=== PATIENT | female | born 1945 | race Native Hawaiian/Other Pacific Islander ===

== ENCOUNTER 2016-09-17 06:20 | Day surgery (SDC) | payer MEDICARE, OTHER ==
[2016-09-11 08:42] VITALS: BMI 27.1
[~2016-09-17 06:20] MED LIST: Ciprofloxacin 0.3% OPTH SOLN OD SCH; Cyclopentolate 1% Opth (2 ml) OD SCH; Flurbiprofen 0.03% Opht SOLN OD SCH; Lactated Ringer's 500 ML IV ONE; Phenylephrine 2.5% Opht Soln OD SCH; Tropicamide 1% Opht SOLUTION OD SCH; acetaZOLAMIDE 500 mg SR Cap PO ONE
[2016-09-17] MEDS ORDERED: Lactated Ringer's 1,000 ML IV ONE (07:00)
[2016-09-17] MEDS: Tetracaine 0.5% Ophth (OR ONLY) ONE ×3 (07:37→08:36)
[2016-09-17] MEDS: Povidone Iodine Ophthalmic 5% Soln ONE ×3 (07:38→08:45)
[2016-09-17] MEDS: Hyaluronidase Human, Recombi 150 U/ML VIAL ONE ×2 (07:40→08:45)
[2016-09-17] MEDS: Lidocaine 2% Inj (20ml) ONE ×3 (07:40→08:45)
[2016-09-17] MEDS: Carbachol 0.01% IO ONE ×2 (07:41→08:50)
[2016-09-17] MEDS: Chondroitin/Hyaluronate Opth Syringe KIT (0.55 ml-0.5 ml) IO ONE ×2 (07:41→08:56)
[2016-09-17] MEDS: Tobramycin/Dexamethasone OPHT OINT ONE ×2 (07:42→08:47)
[2016-09-17] MEDS ORDERED: Midazolam 2 MG/2 ML VIAL ONE (08:11)
[2016-09-17] MEDS ORDERED: acetaZOLAMIDE 500 mg SR Cap PO ONE (09:30)
[2016-09-17 11:01] VITALS: TEMP 96.4; O2SAT 96
[2016-09-17 11:02] VITALS: PULSE 67; RESP 18
[2016-09-17 11:03] VITALS: BP 182/70
--- NOTE | 2016-10-08 20:21 | OP ---
PROCEDURE DATE: 09/17/2016 PREOPERATIVE DIAGNOSIS: Cataract. POSTOPERATIVE DIAGNOSIS: Cataract. PROCEDURE: Phacoemulsification, insertion of posterior chamber implant. SURGEON: Dr. Venkata Sherman COSURGEON: Dr. Dozier TYPE OF ANESTHESIA: Local IV sedation. DESCRIPTION OF PROCEDURE: The patient was brought into the operating room, placed in supine position, prepped and draped in the usual fashion for ophthalmic surgery. Lid speculum was inserted, lids and exposing globe. A side-port incision was made superiorly and inferiorly with a disposable sharp blade. Anterior chamber was filled with Viscoat. A near clear corneal incision was made temporally with a 2.4-mm keratome. Capsulorrhexis was then performed with Utrata forceps. Hydrodissection was then carried out and the nucleus was mobilized. The nucleus was then phacoemulsified. Remaining cortical fragments were removed with a split irrigation and aspiration system. The capsular sac was filled with Provisc. A posterior chamber lens was inserted into the sac and rotated into horizontal position. Provisc was aspirated out of the anterior chamber. The pupil was constricted with Miochol. The whole wounds were then hydrated with balanced salt solution and all wounds were found to be watertight. Topical Betadine, Timoptic, and TobraDex ointment and pressure patch were applied. The patient tolerated the procedure well. Venkata Sherman MD
== END 2016-09-17 09:53 | disposition home or self-care (01) ==
LOC: C.SDS 06:20
PROVIDERS: ATTEND Ophthalmology
DX: H26.9 Unspecified cataract (principal); E11.9 Type 2 diabetes mellitus without complications
CPT/HCPCS: 66984; 82948; J2250; J3010; J3470; J7120; V2632

== ENCOUNTER 2016-10-03 10:31 | Day surgery (SDC) | payer MEDICARE, OTHER ==
[2016-09-11 08:41] VITALS: BMI 27.1
[~2016-10-03 10:31] MED LIST changes: -Ciprofloxacin 0.3% OPTH SOLN OD SCH; +Ciprofloxacin 0.3% OPTH SOLN OS SCH; -Cyclopentolate 1% Opth (2 ml) OD SCH; -Flurbiprofen 0.03% Opht SOLN OD SCH; +Flurbiprofen 0.03% Opht SOLN OS SCH; -Phenylephrine 2.5% Opht Soln OD SCH; +Phenylephrine 2.5% Opht Soln OS SCH; -Tropicamide 1% Opht SOLUTION OD SCH; +Tropicamide 1% Opht SOLUTION OS SCH
[2016-10-03] MEDS ORDERED: Lactated Ringer's 500 ML IV ONE (11:36)
[2016-10-03 11:46] VITALS: BP 158/85; RESP 18
[2016-10-03] MEDS: Hyaluronidase Human, Recombi 150 U/ML VIAL ONE ×3 (12:33→15:14)
[2016-10-03] MEDS: Chondroitin/Hyaluronate Opth Syringe KIT (0.55 ml-0.5 ml) IO ONE ×2 (12:33→14:54)
[2016-10-03] MEDS: Povidone Iodine Ophthalmic 5% Soln ONE ×3 (12:34→15:18)
[2016-10-03] MEDS: Tetracaine 0.5% Ophth (OR ONLY) ONE ×3 (12:34→15:14)
[2016-10-03] MEDS: Tobramycin/Dexamethasone OPHT OINT ONE ×3 (12:35→15:30)
[2016-10-03] MEDS: Lidocaine 2% Inj (20ml) ONE ×2 (14:52→15:14)
[2016-10-03] MEDS: Carbachol 0.01% IO ONE ×2 (14:54→15:30)
[2016-10-03] MEDS ORDERED: Midazolam 2 MG/2 ML VIAL ONE (15:13)
[2016-10-03 16:51] VITALS: TEMP 98
[2016-10-03 16:55] VITALS: PULSE 73; O2SAT 99
--- NOTE | 2016-10-08 20:11 | OP ---
PROCEDURE DATE: 10/03/2016 PREOPERATIVE DIAGNOSIS: Cataract. POSTOPERATIVE DIAGNOSIS: Cataract. PROCEDURE: Phacoemulsification, insertion of lens implant. SURGEON: Dr. Venkata Sherman. COSURGEON: . TYPE OF ANESTHESIA: Local IV sedation. DESCRIPTION OF PROCEDURE: The patient was brought into the operating room, placed in supine position, prepped and draped in the usual fashion for ophthalmic surgery. Lid speculum was inserted, lids and exposing globe. A side-port incision was made superiorly and inferiorly with a disposable sharp blade. Anterior chamber was filled with Viscoat. A near clear corneal incision was made temporally with a 2.75-mm keratome. Capsulorrhexis was then performed with Utrata forceps. Hydrodissection carried out with balanced salt solution. Nucleus was phacoemulsified. Remaining cortical fragments were removed with a split irrigation and aspiration system. The capsular sac was filled with Provisc. A posterior chamber lens was then injected into the capsular sac and rotated into horizontal position. Provisc was aspirated out of the anterior chamber. The pupil was constricted with Miochol. The wound was found to be watertight. Topical Betadine, Timoptic, and TobraDex ointment and pressure patch were applied. The patient tolerated the procedure well. Venkata Sherman MD
== END 2016-10-03 16:56 | disposition home or self-care (01) ==
LOC: C.SDS 10:31
PROVIDERS: ATTEND Ophthalmology
DX: H26.9 Unspecified cataract (principal); E11.9 Type 2 diabetes mellitus without complications
CPT/HCPCS: 66984; 82948; J2250; J3010; J3470; J7120; V2632